=== PATIENT | female | born 1970 | race Caucasian/White ===

== ENCOUNTER 2016-12-12 17:54 | Emergency (ER) | payer BC ==
[2016-12-12] MEDS ORDERED: IBUPROFEN 600 MG TABLET PO ONE (19:11)
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
== END 2016-12-12 21:32 | disposition home or self-care (01) ==
LOC: ER 17:54
DX: S50.12XA Contusion of left forearm, initial encounter (principal); S50.11XA Contusion of right forearm, initial encounter; S60.222A Contusion of left hand, initial encounter; S60.221A Contusion of right hand, initial encounter; S50.01XA Contusion of right elbow, initial encounter; Y04.8XXA Assault by other bodily force, initial encounter
CPT/HCPCS: 99283; 99284